=== PATIENT | male | born 1990 | race Caucasian/White ===

== ENCOUNTER 2017-11-17 13:27 | Emergency (ER) | payer MEDICAID ==
[~2017-11-17] VITALS: Ht 182.9 cm; Wt 101.0 kg
[2017-11-17 13:34] VITALS: BP 116/61
== END 2017-11-17 14:38 | disposition home or self-care (01) ==
LOC: ER 13:27
DX: S93.401A Sprain of unspecified ligament of right ankle, initial encounter (principal); Z88.0 Allergy status to penicillin; X50.1XXA Overexertion from prolonged static or awkward postures, initial encounter; Y93.02 Activity, running; Y92.89 Other specified places as the place of occurrence of the external cause; Y99.8 Other external cause status
CPT/HCPCS: 73610; 99284; A6449

== ENCOUNTER 2018-01-05 16:33 | Emergency (ER) | payer MEDICAID ==
[~2018-01-05] VITALS: Ht 182.9 cm; Wt 100.0 kg
[2018-01-05 16:52] VITALS: BP 127/69
[2018-01-05] MEDS ORDERED: dexamethasone sod phosphate 10mg/ml inj IM STA (17:08)
[2018-01-05] MEDS ORDERED: PRED50TA PO (17:09)
== END 2018-01-05 17:23 | disposition home or self-care (01) ==
LOC: ER 16:33
DX: L23.7 Allergic contact dermatitis due to plants, except food (principal); Z88.0 Allergy status to penicillin; Z79.899 Other long term (current) drug therapy
CPT/HCPCS: 96372; 99283; J1100

== ENCOUNTER 2018-12-28 13:37 | Emergency (ER) | payer MEDICAID, OTHER ==
[~2018-12-28] VITALS: Ht 177.8 cm; Wt 90.9 kg
[~2018-12-28 13:37] MED LIST: PRED50TA PO
[2018-12-28] MEDS ORDERED: ondansetron/PF 4mg/2ml inj IV ONE (14:25)
[2018-12-28] MEDS ORDERED: morphine 4 MG/ML inj SYRINge IV PRN (14:25)
[2018-12-28] MEDS ORDERED: normal saline 1000ML IV soln IVB ONE (14:25)
[2018-12-28] MEDS ORDERED: ketorolac trometh. 30mg/ml inj. IV ONE (14:30)
[2018-12-28 14:39] LABS: BASOPHILS % (AUTO) 0.6 % (0-1); EOSINOPHILS # (AUTO) 0.1 X10'3 (0-0.9); EOSINOPHILS % (AUTO) 1.2 % (0-6); HEMATOCRIT 42.6 % (42.0-52.0); HEMOGLOBIN 14.3 g/dl (14.0-17.9); LYMPHOCYTES % (AUTO) 26.5 % (21-51); MEAN CORPUSCULAR HGB CONC 33.6 g/dL (33.0-36.5); MEAN CORPUSCULAR VOLUME 95.1 FL (78-98); MEAN PLATELET VOLUME 8.6 FL (7.4-10.4); MONOCYTES # (AUTO) 0.5 X10'3 (0-0.9); MONOCYTES % (AUTO) 6.9 % (2-12); NEUTROPHILS # (AUTO) 4.8 X10'3 (1.8-7.7); NEUTROPHILS % (AUTO) 64.8 % (42-75); PLATELET COUNT 183 X10'3 (140-440); RED BLOOD COUNT 4.48 X10'6 (4.70-6.10); RED CELL DISTRIBUTION WIDTH 13.3 % (11.5-14.5); WHITE BLOOD COUNT 7.5 X10'3 (4.5-11.0)
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
[2018-12-28 14:56] LABS: ALANINE AMINOTRANSFERASE 35 U/L (12-78); ALBUMIN 4.4 G/DL (3.4-5.0); ALBUMIN/GLOBULIN RATIO 1.7 (1.1-1.5); ALKALINE PHOSPHATASE 74 IU/L (46-116); ANION GAP 11 (8-16); ASPARTATE AMINO TRANSFERASE 23 U/L (10-37); BILIRUBIN,TOTAL 0.7 MG/DL (0.1-1.0); BLOOD UREA NITROGEN 13 MG/DL (7-18); BUN/CREATININE RATIO 12.5 (5.4-32.0); CALCIUM 8.6 MG/DL (8.5-10.1); CHLORIDE 105 MMOL/L (99-107); CREATININE 1.04 MG/DL (0.60-1.10); GLUCOSE 90 MG/DL (70-104); POTASSIUM 3.7 MMOL/L (3.5-5.1); SODIUM 142 MMOL/L (135-145); TOTAL CARBON DIOXIDE 25.7 MMOL/L (24-32); eGFR 86 ML/MIN
[2018-12-28] MEDS ORDERED: iohexol 300mg/ml 100ml inj. ONE (15:17)
[2018-12-28] MEDS ORDERED: HYDR-4383 PO (15:54)
[2018-12-28] MEDS ORDERED: KETO10TA2 PO (15:54)
[2018-12-28 16:08] VITALS: BP 107/53
== END 2018-12-28 16:15 | disposition home or self-care (01) ==
LOC: ER 13:37
DX: S20.219A Contusion of unspecified front wall of thorax, initial encounter (principal); F17.210 Nicotine dependence, cigarettes, uncomplicated; Z88.0 Allergy status to penicillin; Z79.899 Other long term (current) drug therapy; V59.49XA Driver of pick-up truck or van injured in collision with other motor vehicles in traffic accident, initial encounter; Y93.89 Activity, other specified; Y92.488 Other paved roadways as the place of occurrence of the external cause; Y99.8 Other external cause status
CPT/HCPCS: 36415; 71045; 71120; 71260; 80053; 84484; 85025; 93005; 96374; 96375; 99284; J1885; J2270; J2405; J7030; Q9967

== ENCOUNTER 2019-12-13 13:15 | Emergency (ER) | payer MEDICAID, OTHER ==
[~2019-12-13] VITALS: Ht 182.9 cm; Wt 90.9 kg
[~2019-12-13 13:15] MED LIST changes: +HYDR-4383 PO; +KETO10TA2 PO
[2019-12-13 13:58] LABS: BASOPHILS % (AUTO) 0.6 % (0-1); EOSINOPHILS # (AUTO) 0.1 X10'3 (0-0.9); EOSINOPHILS % (AUTO) 1.8 % (0-6); HEMATOCRIT 49.5 % (42.0-52.0); LYMPHOCYTES # (AUTO) 1.9 X10'3 (1.1-4.8); LYMPHOCYTES % (AUTO) 29.3 % (21-51); MEAN CORPUSCULAR HGB CONC 34.4 g/dL (33.0-36.5); MEAN PLATELET VOLUME 8.7 FL (7.4-10.4); MONOCYTES # (AUTO) 0.4 X10'3 (0-0.9); MONOCYTES % (AUTO) 6.8 % (2-12); NEUTROPHILS # (AUTO) 4.1 X10'3 (1.8-7.7); NEUTROPHILS % (AUTO) 61.5 % (42-75); PLATELET COUNT 208 X10'3 (140-440); RED BLOOD COUNT 5.32 X10'6 (4.70-6.10); RED CELL DISTRIBUTION WIDTH 13.1 % (11.5-14.5); WHITE BLOOD COUNT 6.6 X10'3 (4.5-11.0)
[2019-12-13 14:14] LABS: ALANINE AMINOTRANSFERASE 49 U/L (12-78); ALBUMIN 4.5 G/DL (3.4-5.0); ALBUMIN/GLOBULIN RATIO 1.4 (1.1-1.5); ALKALINE PHOSPHATASE 91 IU/L (46-116); ANION GAP 5 (8-16); ASPARTATE AMINO TRANSFERASE 27 U/L (10-37); BILIRUBIN,TOTAL 0.7 MG/DL (0.1-1.0); BLOOD UREA NITROGEN 9 MG/DL (7-18); BUN/CREATININE RATIO 7.8 (5.4-32.0); CHLORIDE 107 MMOL/L (99-107); CREATININE 1.16 MG/DL (0.60-1.10); GLUCOSE 93 MG/DL (70-104); POTASSIUM 4.5 MMOL/L (3.5-5.1); SODIUM 142 MMOL/L (135-145); TOTAL CARBON DIOXIDE 29.6 MMOL/L (24-32); TOTAL PROTEIN 7.7 G/DL (6.4-8.2); eGFR 76 ML/MIN
[2019-12-13] MEDS ORDERED: famotidine 20mg tablet PO ONE (14:15)
[2019-12-13] MEDS ORDERED: ketorolac tromethamine 15mg/ml inj. IV ONE (14:15)
[2019-12-13] MEDS ORDERED: normal saline 1000ML IV soln IVB ONE (14:15)
[2019-12-13] MEDS ORDERED: proCHLORperazine 10 MG/2 ml inj IV ONE (15:30)
[2019-12-13] MEDS ORDERED: DIPH25CA83 PO (15:48)
[2019-12-13] MEDS ORDERED: METO-292 PO (15:48)
[2019-12-13 16:05] VITALS: BP 129/72
== END 2019-12-13 16:07 | disposition home or self-care (01) ==
LOC: ER 13:15
DX: R11.2 Nausea with vomiting, unspecified (principal); R10.13 Epigastric pain; Z88.0 Allergy status to penicillin; Z79.899 Other long term (current) drug therapy
CPT/HCPCS: 36415; 76700; 80053; 85025; 96361; 96374; 96375; 99284; J0780; J1885; J7030

== ENCOUNTER 2020-05-05 16:48 | Emergency (ER) | payer OTHER ==
[~2020-05-05] VITALS: Ht 182.9 cm; Wt 93.6 kg
[~2020-05-05 16:48] MED LIST changes: +DIPH25CA83 PO; +METO-292 PO
[2020-05-05 16:53] VITALS: BP 142/87
[2020-05-05] MEDS ORDERED: IBUP-1984 PO (17:35)
[2020-05-05] MEDS ORDERED: CLIN300C70 PO (17:35)
== END 2020-05-05 17:43 | disposition home or self-care (01) ==
LOC: ER 16:49
DX: K04.7 Periapical abscess without sinus (principal); Z88.0 Allergy status to penicillin; Z79.2 Long term (current) use of antibiotics; Z79.899 Other long term (current) drug therapy
CPT/HCPCS: 99283

== ENCOUNTER 2024-12-11 00:53 | Emergency (ER) | payer SELFPAY ==
[~2024-12-11] VITALS: Ht 182.9 cm; Wt 71.4 kg
[2024-12-11 00:56] VITALS: BP 130/82; PULSE 96; RESP 15; TEMP 97.8; O2SAT 99
[2024-12-11] MEDS: metroNIDAZOLE 500mg tablet PO ONE (01:41)
[2024-12-11] MEDS: sulfamethoxazole/trimethoprim DS (800/160mg) tablet PO ONE (01:41)
[2024-12-11] MEDS: ibuprofen tablet 400 MG TABLET PO ONE (01:41)
[2024-12-11] MEDS ORDERED: IBUP-1986 PO (01:48)
[2024-12-11] MEDS ORDERED: ALBU18HF2 INH (01:48)
[2024-12-11] MEDS ORDERED: SULF1TAB49 PO (01:48)
[2024-12-11] MEDS ORDERED: METR-159 PO (01:48)
== END 2024-12-11 01:54 | disposition home or self-care (01) ==
LOC: ER 00:53
DX: K04.7 Periapical abscess without sinus (principal); L02.01 Cutaneous abscess of face; J45.909 Unspecified asthma, uncomplicated; F17.200 Nicotine dependence, unspecified, uncomplicated; Z88.0 Allergy status to penicillin; Z79.899 Other long term (current) drug therapy; Z79.52 Long term (current) use of systemic steroids
CPT/HCPCS: 99284

== ENCOUNTER 2025-03-28 05:21 | Inpatient (IN) | payer MEDICAID ==
[~2025-03-28] VITALS: Ht 182.9 cm; Wt 81.8 kg
[2025-03-28] VITALS (20 sets, daily range): BP systolic 92–119; BP diastolic 46–76; PULSE 57–90; RESP 11–20; TEMP 98.4–98.8; O2SAT 95–100
[~2025-03-28 05:21] MED LIST changes: -DIPH25CA83 PO; -HYDR-4383 PO; -KETO10TA2 PO; -METO-292 PO; +NO HOME MEDS; -PRED50TA PO
[2025-03-28] MEDS ORDERED: ertapenem sod inj 1 GM in normal saline 100ml IV soln 100 ML IV ONE (06:24)
--- NOTE | 2025-03-28 06:31 | Physician Documentation ---
History of Present Illness ~ Chief Complaint: Bite-insect Stated Complaint: SPIDER BITE Time Seen by MD: 05:58 Primary Medical Doctor: NONE HPI Otherwise healthy male presents to the ER with what he believes is a spider bite to his right index finger. It happened a week ago but the last 3 days it started to turn red and get swollen. He has severe pain in the finger and on the top of the hand all the way down to his wrist. He gets hives with both penicillin and Rocephin. 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 He states this is the 3rd time that this has happened to him. He states the last time it happened he was able to open and drain it but he has not been able to get it to drain this time. He is right- handed. Timing/Duration of Symptoms: days (Seven) Bit By: spider Associated Symptoms: pain, pus, rash Pain Severity: severe Rash: red, painful Rash Location: hands Tetanus within 5 years?: Yes Medication Reconciliation Allergies: Coded Allergies: Penicillins (Verified Allergy, Severe, swelling, 03/28/25) <5 years ago, swelling, treatment required ceftriaxone (Verified Allergy, Severe, 03/28/25) Rash, SOB, airway issue Miscellaneous Medications Home Med List (No Home Medications), (Reported) Past Medical History Past Medical History: No Pertinent History, MRSA Abscess Past Surgical History: noncontributory Patient History: Patient reports no known family medical history. Alcohol Use: None Drug Use: none Lives with: Family Lives In: Home Occupation: employed Review of Systems All Other Systems at this time: Reviewed and Negative Physical Exam Vital Signs: Temperature: 97.7, Heart Rate: 104, Respiratory Rate: 18, BP: 112/75, Pulse Oximetry: 100, Weight: 81.820 General Appearance: alert Oropharynx/Lips: normal inspection Airway: patent Neck: normal inspection, full range of motion, supple Cardiovascular: normal peripheral pulses Cardiovascular Mild tachycardia Respiratory: no respiratory distress Extremities: inflammation, swelling Extremities Right index finger: Moderate to severe swelling on the proximal half of the finger with erythema and a 0.5 cm scabbing with surrounding pustular area, indurated, difficulty and decreased flexion and no full extension, tender on the dorsum of the hand Neurologic: oriented x4, oriented to time, oriented to person, oriented to place Psychiatric: normal mood/affect Progress Results/Orders Results/Orders Orders - EUGENIA HANEY MD Culture Blood (03/28/25 06:07) Urinalysis, Cult If Indicated (03/28/25 06:07) Monitor (03/28/25 06:07) Saline Lock (03/28/25 06:07) Procalcitonin (03/28/25 06:07) Vancomycin/H2o 1.75g/350ml Pb (Vancomyci (03/28/25 06:25) Page Hospitalist (03/28/25 ) Completed Orders - EUGENIA HANEY MD Ertapenem Sod Inj (Invanz Inj) (03/28/25 06:24) Cbc/Diff (03/28/25 06:07) BMP (03/28/25 06:07) Lacticsepsis (03/28/25 06:07) Morphine 4mg/Ml Inj. (Morphine Inj.) (03/28/25 06:15) Ondansetron Inj. (Zofran 4mg/2ml Vial) (03/28/25 06:15) Ertapenem Sod Inj (Invanz Inj) (03/28/25 06:32) Medications Received in ER Medications (Trade) Dose Ordered Sig/Cathleen Route PRN Reason Start Time Stop Time Status Last Admin Dose Admin (morphine inj.) 4 mg ONCE ONCE IV 03/28/25 06:15 03/28/25 06:16 DC 03/28/25 07:09 4 MG (Zofran 4mg/2ml vial) 4 mg ONCE ONCE IV 03/28/25 06:15 03/28/25 06:17 DC 03/28/25 07:08 4 MG Ertapenem 1 gm/ Sodium Chloride 110 ml @ 110 mls/hr ONCE ONCE IV 03/28/25 06:32 03/28/25 07:23 DC 03/28/25 07:09 110 MLS/HR Vital Signs 03/28/25 03/28/25 05:25 07:09 Temp 97.7 Pulse 104 Resp 18 18 B/P (MAP) 112/75 Pulse Ox 100 Laboratory Tests Test 03/28/25 06:56 White Blood Count 12.6 H Red Blood Count 4.61 L Hemoglobin 14.1 Hematocrit 42.1 Mean Corpuscular Volume 91.2 Mean Corpuscular Hemoglobin 30.7 Mean Corpuscular Hemoglobin Concent 33.6 Red Cell Distribution Width 13.6 Platelet Count 213 Mean Platelet Volume 7.7 Neutrophils (%) (Auto) 72.5 Lymphocytes (%) (Auto) 17.0 L Monocytes (%) (Auto) 7.6 Eosinophils (%) (Auto) 2.5 Basophils (%) (Auto) 0.4 Neutrophils # (Auto) 9.2 H Lymphocytes # (Auto) 2.1 Monocytes # (Auto) 1.0 H Eosinophils # (Auto) 0.3 Basophils # (Auto) 0.0 CBC Comment Sodium Level 139 Potassium Level 3.4 L Chloride Level 104 Carbon Dioxide Level 26.5 Anion Gap 9 Blood Urea Nitrogen 8 Creatinine 1.12 H Estimated GFR/1.73 m2 76 BUN/Creatinine Ratio 7.1 L Glucose Level 107 H Lactic Acid Level 1.9 Calcium Level 8.5 Albumin 3.6 Chemistry Comments Medical Decision Making Additional Comment Differential: Cellulitis, tenosynovitis, abscess, sepsis Departure Disposition: ADMITTED INPATIENT Admitted to Inpatient Unit: yes, to hospitalist Admission Level of Care: Med/Surg Impression: Primary Impression: Tenosynovitis right index finger Additional Impression: Sepsis Qualified Codes: A41.9 - Sepsis, unspecified organism Additional Impression Text Tenosynovitis right index finger; Sepsis Condition: Stable Referrals: NO PRIMARY CARE PROVIDER (PCP) Comments Patient with tenosynovitis of right index finger. Heart rate 104; wbc 12.6. Meets criteria for sepsis. Started on ertapenem and vancomycin. Given morphine for pain. Discussed with hand surgeon Dr. Elizabeth. Also discussed with hospitalist Dr. Davenport who will accept. Patient will be admitted for further evaluation and treatment. Stable on admission. Education Educated: Patient Educated regarding: diagnosis, treatment Signature Scribe Signature: No scribe used Attestation: No scribe used EUGENIA HANEY MD Mar 28, 2025 06:31
[2025-03-28 07:04] LABS: MEAN PLATELET VOLUME 7.7 FL (7.4-10.4); RED CELL DISTRIBUTION WIDTH 13.6 % (11.5-14.5)
[2025-03-28] MEDS: ondansetron/PF 4mg/2ml inj IV ONE (07:08)
[2025-03-28] MEDS: ertapenem sod inj 1 GM in normal saline 100ml IV soln 110 ML IV ONE (07:09)
[2025-03-28] MEDS: morphine 4 MG/ML inj SYRINge IV ONE (07:09)
[2025-03-28 07:12] LABS: CREATININE 1.12 MG/DL (0.60-1.10); TOTAL CARBON DIOXIDE 26.5 MMOL/L (24-32); eCRCL 104 ML/MIN; eGFR 76 ML/MIN
[2025-03-28] MEDS: VANCOMYCIN 1.75GM/WATER FOR INJ (PEG) 350 ML IVPB IV ONE (07:37)
[2025-03-28] MEDS ORDERED: potassium Cl 20 mEq SR tablet PO PRN ×2 (07:50)
[2025-03-28] MEDS ORDERED: magnesium sulf-water 2g/50mL 50 ML IV PRN (07:50)
[2025-03-28] MEDS ORDERED: ondansetron/PF 4mg/2ml inj IV PRN ×2 (07:50→11:50)
[2025-03-28] MEDS ORDERED: magnesium sulf-water 4G/100mL 100 ML IV PRN (07:50)
[2025-03-28] MEDS ORDERED: magnesium hydroxide 30ml (MOM) UD suspension PO PRN (07:50)
[2025-03-28] MEDS ORDERED: potassium Cl 40MEQ/1/2NS 520ml 520 ML IV PRN (07:50)
[2025-03-28] MEDS ORDERED: mag hydrox/Alum hydrox/simeth 30ml oral suspension PO PRN (07:50)
[2025-03-28] MEDS ORDERED: HYDROcodone/acetaminophen 5mg/325mg tablet PO PRN (07:50)
[2025-03-28] MEDS ORDERED: HYDROmorphone/PF 0.2 MG/ML SYRINGE IV PRN ×2 (07:50→11:50)
[2025-03-28] MEDS ORDERED: VANCOMYCIN/H2O 1.5g/300mL PB 300 ML IV SCH (08:00)
[2025-03-28] MEDS: K and/or MAG REPLACEMENT MC SCH (08:00)
[2025-03-28] MEDS ORDERED: aztreonam inj. 1,000 MG in normal saline 100ml IV soln 100 ML IV SCH (08:00)
[2025-03-28] MEDS: docusate sod 100mg capsule PO SCH (08:00)
[2025-03-28] MEDS: normal saline 1000ml 1,000 ML IV SCH (09:22)
--- NOTE | 2025-03-28 09:35 | CONSULTATION REPORT ---
History of Present Illness Providers to CC ~ Reason for Admit\Admit Dx: Right hand infection Refering MD: Dr Urbina History of Present Illness Otherwise healthy male presents to the ER with what he believes is a spider bite to his right index finger. It happened a week ago but the last 3 days it started to turn red and get swollen. He has severe pain in the finger and on the top of the hand all the way down to his wrist. He gets hives with both penicillin and Rocephin. 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 He states this is the 3rd time that this has happened to him. He states the last time it happened he was able to open and drain it but he has not been able to get it to drain this time. He is right- handed. Allergies: Coded Allergies: Penicillins (Verified Allergy, Severe, swelling, 03/28/25) <5 years ago, swelling, treatment required ceftriaxone (Verified Allergy, Severe, 03/28/25) Rash, SOB, airway issue Home Medications Home Medications Active Reported No Home Medications (Home Med List) Each Past Family History Family History: Patient reports no known family medical history. Physical Exam Last Vital Signs Recorded: Temperature: 97.7, Heart Rate: 83, Respiratory Rate: 18, BP: 115/75, Pulse Oximetry: 97, Weight: 81.820 General Appearance: alert, no apparent distress Neck: normal inspection, full range of motion, supple Respiratory: no respiratory distress Cardiovascular: normal peripheral pulses Extremities: inflammation, swelling Extremities Right index finger has an open wound on the radial side proximal segment. There is surrounding erythema and significant swelling of the entire index finger. His tendons appear to be intact. He states he has pain radiating up his arm but I can not elicit any tenderness over the flexor tendon in the palm. Neurologic: oriented x4, oriented to time, oriented to person, oriented to place Psychiatric: normal mood/affect Results Diagram Lab Result Diagram: 03/28/25 0656 03/28/25 0656 Assessment/Plan Problems/Diagnosis: (1) Cellulitis of right hand Additional Plan This needs surgical debridement before this gets into the tendon sheath or the joint. We will schedule him for I and D in the operating room radu. Consent was obtained. Possibility of the further infection or need for further surgery have been discussed with the patient. He agreed to proceed. DOUGIE MCCORMICK Jr., MD Mar 28, 2025 09:35
[2025-03-28] MEDS ORDERED: BUPIVAcaine/PF 2.5mg/ml (0.25%) 10ml vial ONE (09:43)
[2025-03-28] MEDS ORDERED: fentaNYL/PF 50MCG/1 ML 2ML syringe ONE (11:10)
[2025-03-28] MEDS ORDERED: midazolam 1 mg/ML 2ml injection ONE (11:11)
[2025-03-28] MEDS ORDERED: propofol inj 20 ML IV ONE (11:17)
[2025-03-28] MEDS: BUPIVAcaine/PF 2.5 mg/ml (0.25%) 30ml vial IJ ONE (11:33)
--- NOTE | 2025-03-28 11:40 | OPERATIVE REPORT ---
Operative Report Providers to ~ Date of Procedure: Mar 28, 2025 Pre-Operative Diagnosis: Right index finger abscess Post-Operative Diagnosis SAME as PRE-Op Procedure Performed Irrigation and debridement of right index finger abscess skin and subcutaneous tissue Surgeon: Robert Elizabeth MD Cash Specialist None Anesthesiologist: Art Julien Type of Anesthesia: General Findings: Abscess between the skin and the extensor tendon over the proximal segment of the index finger dorsally Complications None Prosthetics\Implants used: None Estimated Blood Loss: None Specimen Removed: Deep wound culture Description of Procedure: The patient is a 34-year-old man who presented overnight to the emergency department with a several-day history of what he described as a spider bite to his right index finger. It happened several days prior and just got worse and worse. He then presented and was admitted with an abscess of the index finger. Surgery is indicated to eliminate infection. Risks and benefits were discussed with the patient such as failure to eradicate the infection and need for further surgery. Tendon damage bone or joint damage and stiffness. He agreed to proceed. He was given an anesthetic in the operating room and the arm was prepped and draped in usual manner. A tourniquet was elevated on the forearm. The wound was on the radial edge of the index finger dorsal radial proximal segment. The wound was open and it was incised at either end. There was some pus in the subcutaneous tissues and a deep culture was obtained. There was some necrotic tissue as well in the subcutaneous area. A curette and rongeur were used to thoroughly debride that area. It did not extend to the flexor or extensor tendon sheath. IrriSept irrigation was used and once all devitalized tissue was removed very loose Prolene sutures were used to partially close the wound. Marcaine was injected at the base of the digit in sterile dressing was applied. The tourniquet was released the finger perfused well. He was taken to the recovery room in stable condition ROBERT ELIZABETH Jr., MD Mar 28, 2025 11:40
[2025-03-28] MEDS: aztreonam inj. 1,000 MG in normal saline 100ml IV soln 100 ML IV SCH (11:41)
[2025-03-28] MEDS ORDERED: labetalol 20mg/4ml (5mg/ml) syringe IV PRN (11:50)
[2025-03-28] MEDS ORDERED: hydrALAZINE 20mg/ml inj. IV PRN (11:50)
[2025-03-28] MEDS: ringers solution, lacted 1,000 ML IV SCH (11:50)
[2025-03-28] MEDS: HYDROmorphone/PF 0.2 MG/ML SYRINGE IV PRN (12:07)
[2025-03-28] MEDS: morphine 4 MG/ML inj SYRINge IV PRN (12:27)
[2025-03-28] MEDS: HYDROmorphone inj. 0.5 MG/0.5 ML DISP.SYRIN IV PRN ×2 (14:25→19:06)
[2025-03-28] MEDS: HYDROcodone/acetaminophen 10/325mg tab PO PRN (17:45)
--- NOTE | 2025-03-28 19:13 | HISTORY AND PHYSICAL ---
History & Physical Providers to CC ~ History of Present Illness Reason for Admit\Complaint: Right 2nd finger abscess History of Present Illness This is a 34-year-old male who states that he has a spider bite in his right 2nd finger and noticed that is the fingers started getting red and swollen three days ago and the pain became intolerable and the patient decided to come to the hospital the patient has a right 2nd finger abscess and Dr. Elizabeth orthopedic surgeon took the patient to the OR for a I&D- the patient has an allergy to penicillins which he gets skin lesions and ceftriaxone for which he had an anaphylactic reaction. I discussed the case with Dr Irma Thomson DO Infectious Disease who recommended aztreonam the patient also was on IV vancomycin dosed by pharmacy. Note the patient denies any fever or chills. Allergies: Coded Allergies: Penicillins (Verified Allergy, Severe, swelling, 03/28/25) <5 years ago, swelling, treatment required ceftriaxone (Verified Allergy, Severe, 03/28/25) Rash, SOB, airway issue Home Medications Home Medications Active Reported No Home Medications (Home Med List) Each Past Medical History Past Medical History MRSA abscess Past Surgical History Surgical History Comment None Family History Family History: Patient reports no known family medical history. Past Social History Social History Comment Smokes three cigarettes a day previously smoked two packs a day, does not drink alcohol and denies using illicit drugs. Full code status ROS ROS Except for positives in the HPI the rest of the 14 point review systems is negative Exam Vitals: Vital Signs Date Time Temp Pulse Resp B/P (MAP) Pulse Ox O2 Delivery O2 Flow Rate FiO2 03/28/25 17:45 16 03/28/25 15:48 Room Air 03/28/25 12:51 03/28/25 12:50 71 99 0.0 03/28/25 11:41 97.2 General: Gen. No acute distress alert and oriented 4 Lungs clear to ascultation bilaterally, no wheezes rales or rhonchi appreciated Heart normal sinus rhythm no murmurs rubs or clicks noted Abdomen soft nontender bowel sounds are normoactive Lower extremities no clubbing cyanosis, nor edema appreciated bilaterally Upper extremity a Godwin wrap dressing is in place in the right hand Diagnostic Data Last Recorded Lab Results: 03/28/25 0656 03/28/25 0656 Counseling Services Smoking & Tobacco Cessation: 3-10 Minutes Advance Care Planning Advanced Care plannin - 30 Minutes Problems: (1) Cellulitis of right hand Status: Acute Additional Plan # abscess of the right 2nd finger Status post I&D in the OR with Dr. Fidel Elizabeth orthopedic surgeon On IV vancomycin IV aztreonam as per recommendations of Dr Irma Thomson DO Infectious Disease. # Tobacco abuse-I spent 7 minutes discussing smoking cessation with the patient including the risk of continuing smoke: Lung cancer, stroke, heart attack, poor wound healing, irisk of MRSA skin infections. The patient declined nicotine replacement. # hypokalemia On potassium replacement protocol I spent a total of 16 minutes on reviewing various resuscitative measures/ ACP with the patient at the time of admission. The patient has decided on full code status. Date of Service: Mar 28, 2025 Billing Provider: LISA EDOUARD DO Common Visit Codes: [id number] INP/OBS CARE (HIGH) Secondary Visit Codes: [id number]-[id number] CHNG SMOKING >10MIN, [id number] CARE PLAN 30 MINUTES LISA EDOUARD DO Mar 28, 2025 19:13
[2025-03-28] MEDS: VANCOmycin 1250MG/NS 250ml Bag 250 ML IV SCH (21:37)
[2025-03-29 05:01] LABS: MEAN PLATELET VOLUME 8.3 FL (7.4-10.4); RED CELL DISTRIBUTION WIDTH 13.2 % (11.5-14.5)
[2025-03-29 05:30] LABS: CREATININE 1.26 MG/DL (0.60-1.10); TOTAL CARBON DIOXIDE 31.4 MMOL/L (24-32); eCRCL 92 ML/MIN; eGFR 66 ML/MIN
[2025-03-29 06:00] VITALS: BP 132/77; PULSE 101; RESP 16; TEMP 98.6; O2SAT 16; O2SAT 99
[2025-03-29 08:00] VITALS: RESP 16; O2SAT 99
[2025-03-29 11:00] VITALS: BP 121/68; PULSE 70; RESP 19; TEMP 98.4; O2SAT 99
[2025-03-29] MEDS ORDERED: VANCOMYCIN LEVEL IV ONE (18:30)
--- NOTE | 2025-03-29 18:55 | PROGRESS NOTE ---
Daily Progress Note Providers to CC ~ Antibiotic Timeout Antibiotic Ordered?: Yes Subjective The patient states that his hand is throbbing a lot less he did remove his own d ressing however and states that the dressing is not as tight as it was previously. The patient otherwise is doing well in his no acute complaints Objective Vital Signs Date Time Temp Pulse Resp B/P (MAP) Pulse Ox O2 Delivery O2 Flow Rate FiO2 03/29/25 11:00 98.4 70 19 121/68 (85) 99 Room Air 03/29/25 03:10 95 03/28/25 20:00 0.0 Result Diagram: 03/29/2542503/29/25425 Gen. No acute distress alert and oriented 4 Lungs clear to ascultation bilaterally, no wheezes rales or rhonchi appreciated Heart normal sinus rhythm no murmurs rubs or clicks noted Abdomen soft nontender bowel sounds are normoactive Lower extremities no clubbing cyanosis, nor edema appreciated bilaterally Upper extremity a Godwin wrap dressing is in place in the right hand Problem\Assessment\Plan Problems/Diagnosis: (1) Cellulitis of right hand # tenosynovitis of the right 2nd finger Status post I&D in the OR with Dr. Fidel Elizabeth orthopedic surgeon On IV vancomycin IV aztreonam as per recommendations of Dr Irma Thomson DO Infectious Disease. # Tobacco abuse-I spent 7 minutes discussing smoking cessation with the patient at the time of admission including the risk of continuing smoke: Lung cancer, stroke, heart attack, poor wound healing, irisk of MRSA skin infections. The patient declined nicotine replacement. # hypokalemia On potassium replacement protocol # mild kidney disease Continue monitor for CHRISTINA with daily labs Date of Service: Mar 29, 2025 Billing Provider: LISA EDOUARD DO Common Visit Codes: [id number] INP/OBS CARE(HIGH) LISA EDOUARD DO Mar 29, 2025 18:55
--- NOTE | 2025-03-29 23:55 | CONSULTATION REPORT ---
Consult Consult Consultation Reason for Consult: Tenosynovitis Consulting Provider: Dr. Jaramillo Antibiotic Days: Vanc 1, Aztreonam 1 Lines: PIV Micro: 03/28 Blood- ngtd 03/28 Finger- pending (smear with GPC) HPI: Patient is a 34 year old male with noncontributory past medical history who presented to [facility] on 03/28 with a red, swollen right index finger. He described the inciting incident as a spider bite. Upon arrival, he was seen by ortho and taken fairly emergently to surgery for irrigation and debridement of skin and subcutaneous tissue. Op report describes abscess between the skin and tendon that was cultured. ID had been asked to consult as he has a PCN allergy which he described to me today as swelling. I had empirically recommended Vanc, Aztreonam and was not planning on deescalating as his cultures were still pending. I had described to him the expected duration of antibiotics but he has left AMA by the time of this note. Past Medical/Surgical History: MRSA, otherwise denies Current Medications Medications (Trade) Dose Ordered Sig/Cathleen Route PRN Reason Start Time Stop Time Status Last Admin Dose Admin Morphine Sulfate (morphine inj.) 4 mg ONCE ONCE IV 03/28/25 06:15 03/28/25 06:16 DC 03/28/25 07:09 4 MG Ondansetron HCl (Zofran 4mg/2ml vial) 4 mg ONCE ONCE IV 03/28/25 06:15 03/28/25 06:17 DC 03/28/25 07:08 4 MG Vancomycin HCl 350 ml @ 117 mls/hr ONCE ONCE IV 03/28/25 06:25 03/28/25 09:24 DC 03/28/25 07:37 117 MLS/HR Ertapenem 1 gm/ Sodium Chloride 110 ml @ 110 mls/hr ONCE ONCE IV 03/28/25 06:32 03/28/25 07:23 DC 03/28/25 07:09 110 MLS/HR Acetaminophen (Tylenol tablet) 650 mg Q6H PRN PO MILD PAIN (1-3 ON 0-10 SCALE) 03/28/25 07:50 03/29/25 19:44 DC 03/29/25 12:15 650 MG Acetaminophen/ Hydrocodone Bitart ([place] 10/325mg tab) 1 tab Q4H PRN PO SEVERE PAIN 7-25 07:50 03/29/25 19:44 DC 03/29/25 15:17 1 TAB Hydromorphone HCl (Dilaudid inj.) 1 mg Q4H PRN IV SEVERE PAIN 7-10 03/28/25 07:50 03/28/25 17:51 DC 03/28/25 14:25 1 MG Docusate Sodium (Colace capsule) 100 mg BID PO 03/28/25 08:00 03/29/25 19:44 DC 03/29/25 07:47 100 MG Sodium Chloride 1,000 ml @ 100 mls/hr Q10H IV 03/28/25 07:50 03/29/25 19:44 DC 03/29/25 12:13 100 MLS/HR Aztreonam 1000 mg/ Sodium Chloride 100 ml @ 100 mls/hr Q8H@0200,1000,1800 IV 03/28/25 08:17 03/29/25 19:44 DC 03/29/25 12:13 100 MLS/HR Vancomycin HCl 250 ml @ 166 mls/hr Q12H@0700,1900 IV 03/28/25 19:00 03/29/25 19:44 DC 03/29/25 07:46 166 MLS/HR Bupivacaine HCl (Sensorcaine 0.25% 30ml) 30 ml STK-MED ONCE IJ 03/28/25 11:33 03/28/25 11:40 DC 03/28/25 11:33 10 ML Morphine Sulfate (morphine inj.) 4 mg Q5M PRN IV SEVERE PAIN 7-10 -1ST CHOICE 03/28/25 11:50 03/28/25 19:05 DC 03/28/25 12:27 4 MG Hydromorphone HCl (Dilaudid 0.2 Mg/ ml Syringe) 0.4 mg Q5M PRN IV SEVERE PAIN 7-10 2ND CHOICE 03/28/25 11:50 03/28/25 19:05 DC 03/28/25 12:07 0.4 MG Hydromorphone HCl (Dilaudid inj.) 1 mg Q3H PRN IV SEVERE PAIN 7-10 03/28/25 17:50 03/29/25 19:44 DC 03/29/25 09:52 1 MG Social History: denies ilicit substances Family History: noncontributory ROS: As in HPI, otherwise negative Objective: Vitals: Afebrile, 101, 16, 132/77, 99% on RA General: A&Ox3, NAD HEENT: NC/AT, normal conjunctiva, no oral lesions CV: Regular Resp: Clear anteriorly Abd: Soft, nontender, nondistended Ext: R hand in postop dressing Lines: PIV ok Laboratory Tests 03/29/25 04:26 Assessment: // R index finger tenosynovitis s/p I&D of abscess with cultures prelim (Stained with GPC) // Leukocytosis on arrival is now resolved // Antibiotic Allergies: PCN caused swelling // MRSA Screen: pending Plan: - I had recommended Vanc, Aztreonam until his cultures had resulted. Then the plan would have been 2-3 weeks of PO antibiotics based on his susceptibility profile. Unfortunately, he has left AMA by the time of this note - Thank you for the chance to participate in your patient's care CECILE TOBAR DO Mar 29, 2025 23:55
--- NOTE | 2025-03-30 18:18 | DISCHARGE SUMMARY ---
Discharge Summary Providers to CC ~ Discharge Summary Admission Diagnosis: Right index finger abscess Hospital Course DATE OF ADMISSION: 03/28/2025 DATE OF DISCHARGE: 03/29/2025 left AMA at 7:40 p.m. Discharge Diagnosis\Comment: Tenosynovitis of the right 2nd finger, tobacco use disorder, hypokalemia, mild kidney disease Operations\Procedures: Incision and drainage and washout in the OR Consultants: Dr. Fidel Elizabeth orthopedic surgeon, Dr Irma Thomson DO Infectious Disease Complications: Likely the patient left AMA Condition on DC: Unstable Discharge Summary: I admitted the patient with the following HPI:This is a 34-year-old male who states that he has a spider bite in his right 2nd finger and noticed that is the fingers started getting red and swollen three days ago and the pain became intolerable and the patient decided to come to the hospital the patient has a right 2nd finger abscess and Dr. Elizabeth orthopedic surgeon took the patient to the OR for a I&D- the patient has an allergy to penicillins which he gets skin lesions and ceftriaxone for which he had an anaphylactic reaction. I discussed the case with Dr Irma Thomson DO Infectious Disease who recommended aztreonam the patient also was on IV vancomycin dosed by pharmacy. Note the patient denies any fever or chills. Dr. Thomson evaluated the patient and recommended continuing the antibiotics and that the patient will likely require 2-3 weeks of p.o. antibiotics once the culture results has been obtained. Did smoking cessation with the patient and offered a nicotine patch the patient declined nicotine replacement. I found out when I came to work on the that the patient was no longer h ospitalized and the patient had left AMA at 7:40 p.m. he wanted to go out and smoke and was informed he can not leave the hospitalist to go smoke and that is the patient is became angry and pulled out his IV got dressed and left. *Problems/Diagnosis: (1) Cellulitis of right hand Status: Acute Total Time Spent on D/C: Up to 30 Minutes Date of Service: Mar 30, 2025 Billing Provider: LISA EDOUARD DO Common Visit Codes: NOT BILLABLE (Left AMA on the evening of the at 7:40 p.m.) LISA EDOUARD DO Mar 30, 2025 18:17
== END 2025-03-29 19:37 | disposition left against medical advice (07) | DRG 710 ==
LOC: ER 05:22 → ED HOLD 07:57 → SUR 3N 12:55
PROVIDERS: ADMIT Family Medicine; ATTEND Family Medicine
PROC: 0JBJ0ZZ Excision of Right Hand Subcutaneous Tissue and Fascia, Open Approach (ICD-10-PCS; principal; 2025-03-28 11:04)
DX: A41.9 Sepsis, unspecified organism (principal); T88.6XXA Anaphylactic reaction due to adverse effect of correct drug or medicament properly administered, initial encounter; L02.511 Cutaneous abscess of right hand; L03.113 Cellulitis of right upper limb; M65.841 Other synovitis and tenosynovitis, right hand; T50.995A Adverse effect of other drugs, medicaments and biological substances, initial encounter; E87.6 Hypokalemia; Y83.8 Other surgical procedures as the cause of abnormal reaction of the patient, or of later complication, without mention of misadventure at the time of the procedure; Z88.0 Allergy status to penicillin; Y92.89 Other specified places as the place of occurrence of the external cause; Z88.1 Allergy status to other antibiotic agents; Z72.0 Tobacco use
CPT/HCPCS: 36415; 80048; 80053; 80202; 83605; 83735; 84145; 85025; 87040; 87070; 87075; 87077; 87081; 87186; 96365; 96366; 96375; 99285; A4618; A6222; A6446; A6449; A7000; G0378; J1171; J1335; J2003; J2250; J2270; J2405; J2704; J3010; J3374; J3375; J3490; J7030; J7120

== ENCOUNTER 2025-06-24 02:20 | Emergency (ER) | payer MEDICAID ==
[~2025-06-24] VITALS: Ht 182.9 cm; Wt 81.8 kg
[2025-06-24 02:25] VITALS: BP 123/68; PULSE 95; RESP 22; TEMP 98.4; O2SAT 99
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
== END 2025-06-24 03:48 | disposition home or self-care (01) ==
LOC: ER 02:21
DX: T65.891A Toxic effect of other specified substances, accidental (unintentional), initial encounter (principal); H57.10 Ocular pain, unspecified eye; Z88.0 Allergy status to penicillin; Z88.1 Allergy status to other antibiotic agents; Y92.89 Other specified places as the place of occurrence of the external cause
CPT/HCPCS: 99283

== ENCOUNTER 2025-08-11 19:21 | Emergency (ER) | payer MEDICAID ==
[~2025-08-11] VITALS: Ht 193 cm; Wt 81.6 kg
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
[2025-08-11 19:50] LABS: MEAN PLATELET VOLUME 8.5 FL (7.4-10.4); RED CELL DISTRIBUTION WIDTH 13.7 % (11.5-14.5)
[2025-08-11 19:56] LABS: INR 1.0 INR
[2025-08-11] MEDS: ondansetron/PF 4mg/2ml inj IV ONE (19:57)
[2025-08-11] MEDS: morphine 4 MG/ML inj SYRINge IV ONE (19:58)
[2025-08-11 19:59] LABS: CREATININE 1.08 MG/DL (0.60-1.10); TOTAL CARBON DIOXIDE 29.4 MMOL/L (24-32); eCRCL 113 ML/MIN; eGFR 79 ML/MIN
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
[2025-08-11] MEDS ORDERED: tetanus & diphtheria toxoid (Td) vaccine 0.5ml SYRINGE IMVAC ONE (20:40)
[2025-08-11 20:46] VITALS: BP 120/76
[2025-08-11] MEDS: TETanus/Pertussis (Acell)/Diphther VAC/PF (Tdap-Adult) 0.5ml syringe IMVAC ONE (20:56)
[2025-08-11] MEDS: ketorolac trometh 15mg/ml vial 15 MG/ML ML IV ONE (21:11)
[2025-08-11] MEDS ORDERED: SULF1TAB49 PO (21:27)
[2025-08-11] MEDS: sulfamethoxazole/trimethoprim DS (800/160mg) tablet PO ONE (21:39)
[2025-08-11 21:56] VITALS: PULSE 95; RESP 16; TEMP 97.9; O2SAT 98
== END 2025-08-11 22:37 | disposition home or self-care (01) ==
LOC: ER 19:21
DX: S31.114A Laceration without foreign body of abdominal wall, left lower quadrant without penetration into peritoneal cavity, initial encounter (principal); L03.221 Cellulitis of neck; Z88.0 Allergy status to penicillin; Z88.1 Allergy status to other antibiotic agents; Z79.899 Other long term (current) drug therapy; W26.9XXA Contact with unspecified sharp object(s), initial encounter; Y93.89 Activity, other specified; Y92.89 Other specified places as the place of occurrence of the external cause; Y99.8 Other external cause status
CPT/HCPCS: 36415; 71045; 71260; 74177; 80053; 85025; 85610; 86885; 86900; 86901; 90715; 96361; 96374; 96375; 99291; A6223; J1885; J2270; J2405; Q9967; 90471; A6212; A6258; A6449